=== PATIENT | male | born 1980 | race American Indian/Alaskan Native ===

== ENCOUNTER 2021-07-23 18:40 | Emergency (ER) | payer SELFPAY ==
[2021-07-23 20:55] VITALS: BP 144/93
--- NOTE | 2021-07-23 21:09 | Emergency Department Report ---
ED Eye Problem HPI - General Chief complaint: Eye Problems Stated complaint: PAIN IN LEFT EYE Source: patient Mode of arrival: Ambulatory Limitations: No Limitations - History of Present Illness chief complaint: eye pain (right ), eye redness (right) -: Sudden, days(s) (4) Onset Description: sudden Location: right eye Place: home If Injury: none Eye Symptoms: burning, redness, pain, foreign body sensation, itching, discharge, photophobia Severity: severe Severity scale (0 -10): 7 If Pain, Quality: burning, aching Consistency: constant Associated Symptoms: none Treatments Prior to Arrival: irrigated eye, OTC eye drops - Related Data Patient Tetanus UTD: Yes Previous Rx's Medication Instructions Recorded Last Taken Type Gentamicin 0.3% Ophth Soln 1 drops OP Q4H #5 ml 07/23/21 Unknown Rx Ibuprofen [Motrin] 800 mg PO Q8HR PRN #24 tablet 07/23/21 Unknown Rx Allergies Allergy/AdvReac Type Severity Reaction Status Date / Time No Known Allergies Allergy Verified 07/23/21 20:48 ED Review of Systems ROS: Stated complaint: PAIN IN LEFT EYE Other details as noted in HPI ED Past Medical Hx - Past Medical History Previous Medical History?: No - Surgical History Past Surgical History?: No - Medications Home Medications: Home Medications Medication Instructions Recorded Confirmed Last Taken Type Gentamicin 0.3% Ophth Soln 1 drops OP Q4H #5 ml 07/23/21 Unknown Rx Ibuprofen [Motrin] 800 mg PO Q8HR PRN #24 tablet 07/23/21 Unknown Rx ED Physical Exam - General Limitations: No Limitations ED Course Vital Signs 07/23/21 20:52 Temperature 98.8 F Pulse Rate 87 Respiratory 18 Rate Blood Pressure 144/93 [Right] O2 Sat by Pulse 100 Oximetry Critical care attestation.: If time is entered above; I have spent that time in minutes in the direct care of this critically ill patient, excluding procedure time. ED Disposition Clinical Impression: Acute bacterial conjunctivitis of right eye Disposition: 01 HOME / SELF CARE / HOMELESS Is pt being admited?: No Does the pt Need Aspirin: No Condition: Stable Instructions: Bacterial Conjunctivitis, Adult, [id number] Additional Instructions: Apply the medication to the affected eye as advised, drink plenty of fluids, take pain medication as needed and follow-up with your primary care physician in 7 to 10 days for reevaluation. Return to the ED immediately if symptoms get worse. Prescriptions: Gentamicin 0.3% Ophth Soln 1 drops OP Q4H #5 ml Ibuprofen [Motrin] 800 mg PO Q8HR PRN #24 tablet PRN Reason: Pain , Severe (7-10) Referrals: [facility] [Provider Group] - 7-10 days Forms: Work/School Release Form(ED) Time of Disposition: 21:07 Print Language: [id number]
== END 2021-07-23 20:00 | disposition home or self-care (01) ==
LOC: ED 18:40
DX: H10.31 Unspecified acute conjunctivitis, right eye (principal)
CPT/HCPCS: 99282